=== PATIENT | male | born 1960 | race Two or more races ===

== ENCOUNTER 2016-09-14 12:31 | Inpatient (IN) | payer MEDICAID ==
[~2016-09-14] VITALS: Ht 172.7 cm; Wt 67.1 kg
[2016-09-14] VITALS (10 sets, daily range): BP systolic 124–154; BP diastolic 9–96
[~2016-09-14 12:31] MED LIST: AMLODIPINE BES2.5 MG ORAL; ASPIR 8181 MG ORAL
[2016-09-14] MEDS ORDERED: Famotidine 20 MG/ 2ML VIAL IVP ONE (12:45)
[2016-09-14] MEDS ORDERED: LORazepam Inj 2mg/ml 1ml IV ONE ×3 (12:45→17:45)
[2016-09-14] MEDS ORDERED: Thiamine HCl 100 MG in D5W 55 ML IVPB SCH (12:45)
--- NOTE | 2016-09-14 12:55 | Emergency Room Report ---
History of Present Illness General Chief Complaint: General Complaint Source: Patient, EMS Present Illness HPI The patient was transported by EMS for allegedly having shakes. The history he relates to me is more complicated. He states that he passed out today. He feels that the vapors from a bath he was getting his son caused him to pass out. He stopped drinking alcohol 6 days ago. Before that he drank daily since age 12 without stop. Days ago he started having left shoulder pain. He is uncertain whether he passed out at that time also. Any movement of the left shoulder causes severe pain. He did not have chest pain or palpitations but felt weak before passing out. No prior seizures. He does have the shakes and feels anxious. Denies any vomiting, hematemesis, melena, hematochezia. He denies any headache at this time. He feels very weak and nauseated. 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 Reviewed Nursing Documentation: PMH: Agreed, PSxH: Agreed Nursing Documentation-PMH Past Medical History: No History, Except For Hx Hypertension: Yes Review of Systems All Other Systems: negative except mentioned in HPI Physical Exam Vital Signs Date Time Temp Pulse Resp B/P Pulse Ox O2 Delivery O2 Flow Rate FiO2 09/14/16 12:27 97.2 100 18 104/76 98 Room Air Sp02 EP Interpretation: reviewed, normal General Appearance: well appearing, no apparent distress, GCS 15 Head: normocephalic Eyes: bilateral eye EOMI, bilateral eye PERRL, bilateral eye normal inspection ENT: moist mucus membranes - no lingual maceratoins Neck: supple Respiratory: chest non-tender, lungs clear, normal breath sounds Cardiovascular #1: tachycardia Cardiovascular #2: 2+ radial (R) Gastrointestinal: normal inspection, normal bowel sounds, non tender, no mass, non-distended Musculoskeletal: back normal, gait/station normal, decreased range of motion - L shoulder with pain with PROM and palpation Neurologic: alert, oriented x3, motor strength/tone normal, DTRs symmetric, sensory intact, normal gait, other - resting tremor Psychiatric: depressed affect, anxious Reflexes: 2+ knee (R), 2+ knee (L) Skin: normal inspection, no rash, warm/dry Medical Decision Making Diagnostic Impression: Primary Impression: Syncope Qualified Codes: R55 - Syncope and collapse Additional Impressions: Possible withdrawal seizure Alcohol withdrawal Qualified Codes: F10.239 - Alcohol dependence with withdrawal, unspecified Left shoulder pain Qualified Codes: M25.512 - Pain in left shoulder Hypokalemia Calcific tendinitis ER Course Patient presents with shakes and loss of consciousness with left shoulder pain. Differential includes withdrawal seizure, withdrawal, syncope, arrhythmia, acute myocardial infarction, electrolyte imbalance, shoulder contusion shoulder fracture. Emergent evaluation with laboratory, EKG, chest x-ray, shoulder film and CT head will be undertaken. The patient will receive IV hydration, Zofran, thiamine and Ativan. Shoulder with calcific tendonitis by x-ray. No fracture. CXR negative. EKG and labs sig for low potassium and elevated CPK (uric acid normal). Given potassium. Improved after first 2 mg ativan. However, later patient still with tremor and ativan repeated. Risk for DTs. Also still significant pain L shoulder. Admit Dr. John maldonado. Laboratory Tests Test 09/14/16 12:25 White Blood Count 4.4 K/UL (4.8-10.8) L Red Blood Count 4.68 M/UL (4.70-6.10) L Hemoglobin 15.1 G/DL (14.2-18.0) Hematocrit 45.1 % (42.0-52.0) Mean Corpuscular Volume 96 FL (80-99) Mean Corpuscular Hemoglobin 32.2 PG (27.0-31.0) H Mean Corpuscular Hemoglobin Concent 33.5 G/DL (32.0-36.0) Red Cell Distribution Width 14.8 % (11.6-14.8) Platelet Count 180 K/UL (150-450) Mean Platelet Volume 7.5 FL (6.5-10.1) Neutrophils (%) (Auto) 66.1 % (45.0-75.0) Lymphocytes (%) (Auto) 15.7 % (20.0-45.0) L Monocytes (%) (Auto) 15.5 % (1.0-10.0) H Eosinophils (%) (Auto) 1.2 % (0.0-3.0) Basophils (%) (Auto) 1.6 % (0.0-2.0) Sodium Level 138 mEQ/L (135-145) Potassium Level 3.1 mEQ/L (3.4-4.9) L Chloride Level 96 mEQ/L (98-107) L Carbon Dioxide Level 23 mEQ/L (20-30) Anion Gap 19 (5-15) H Blood Urea Nitrogen 11 mg/dL (7-23) Creatinine 0.8 mg/dL (0.7-1.2) Estimate Glomerular Filtration Rate > 60 mL/min (>60) Glucose Level 180 mg/dL (74-106) H Uric Acid 3.0 mg/dL (3.0-7.5) Calcium Level 9.6 mg/dL (8.6-10.2) Total Bilirubin 1.1 mg/dL (0.0-1.2) Direct Bilirubin 0.3 mg/dL (0.1-0.3) Aspartate Amino Transferase (AST) 226 U/L (5-40) H Alanine Aminotransferase (ALT) 247 U/L (3-41) H Alkaline Phosphatase 89 U/L (40-129) Total Creatine Kinase 129 U/L (38-174) Troponin I < 0.30 ng/mL (<=0.30) Total Protein 7.3 g/dL (6.6-8.7) Albumin 4.5 g/dL (3.5-5.2) Globulin 2.8 g/dL Albumin/Globulin Ratio 1.6 (1.0-2.7) Salicylates Level < 1 mg/dL (10-30) L Acetaminophen Level < 10 ug/mL (10-30) L Serum Alcohol < 10 mg/dL EKG Diagnostic Results Rate: normal Rhythm: NSR ST Segments: no acute changes Rhythm Strip Diag. Results EP Interpretation: yes Rhythm: NSR, no PVC's, no ectopy Chest X-Ray Diagnostic Results EP Interpretation: Yes Findings: no consolidation, no effusion, no pneumothorax, no acute cardiopulmonary disease Number of Views: 1 Other X-Ray Diagnostic Results Other X-Ray Diagnostic Results : EP Interpretation: Yes Findings: no fractures, no dislocation, no soft tissue swelling, other - calcific tendonitis Number of Views: 3 CT/MRI/US Diagnostic Results CT/MRI/US Diagnostic Results : Imaging Test Ordered: head Impression atrophy Last Vital Signs Date Time Temp Pulse Resp B/P Pulse Ox O2 Delivery O2 Flow Rate FiO2 09/14/16 21:00 76 16 148/94 99 Nasal Cannula 2.0 09/14/16 16:30 98.1 Status: improved Disposition: ADMITTED INPATIENT Condition: Serious Nate Duval M.D. Sep 14, 2016 12:55
[2016-09-14] MEDS ORDERED: Thiamine HCl 100mg/ml Inj ONE (12:57)
[2016-09-14 13:19] LABS: BASOPHILS % (AUTO) 1.6 % (0.0-2.0); EOSINOPHILS % (AUTO) 1.2 % (0.0-3.0); LYMPHOCYTES % (AUTO) 15.7 % (20.0-45.0); MEAN CORPUSCULAR HEMOGLOBIN 32.2 PG (27.0-31.0); MEAN CORPUSCULAR HGB CONC 33.5 G/DL (32.0-36.0); MEAN CORPUSCULAR VOLUME 96 FL (80-99); MEAN PLATELET VOLUME 7.5 FL (6.5-10.1); MONOCYTES % (AUTO) 15.5 % (1.0-10.0); NEUTROPHILS % (AUTO) 66.1 % (45.0-75.0); PLATELET COUNT 180 K/UL (150-450); RED BLOOD COUNT 4.68 M/UL (4.70-6.10); RED CELL DISTRIBUTION WIDTH 14.8 % (11.6-14.8); WHITE BLOOD COUNT 4.4 K/UL (4.8-10.8)
[2016-09-14 13:20] LABS: TROPONIN I < 0.30 ng/mL (<=0.30)
[2016-09-14 13:22] LABS: ACETAMINOPHEN < 10 ug/mL (10-30); ALANINE AMINOTRANSFERASE 247 U/L (3-41); ALBUMIN/GLOBULIN RATIO 1.6 (1.0-2.7); ALCOHOL < 10 mg/dL; ANION GAP 19 (5-15); ASPARTATE AMINO TRANSFERASE 226 U/L (5-40); CALCIUM 9.6 mg/dL (8.6-10.2); CARBON DIOXIDE 23 mEQ/L (20-30); CHLORIDE 96 mEQ/L (98-107); CREATININE 0.8 mg/dL (0.7-1.2); GLOMERULAR FILTRATION RATE > 60 mL/min (>60); HEMOLYSIS 4; POTASSIUM 3.1 mEQ/L (3.4-4.9); SODIUM 138 mEQ/L (135-145); TOTAL PROTEIN 7.3 g/dL (6.6-8.7)
[2016-09-14] MEDS ORDERED: KCl 10% 40mEq/30ml liquid ORAL STA (13:36)
[2016-09-14 13:38] LABS: BILIRUBIN,DIRECT 0.3 mg/dL (0.1-0.3)
[2016-09-14] MEDS ORDERED: Ketorolac 30mg Inj IV ONE (14:00)
[2016-09-14] MEDS ORDERED: Diazepam 10mg/2ml Inj IV ONE (16:30)
[2016-09-14 16:38] LABS: APPEARANCE,URINE CLEAR; KETONES,URINE NEGATIVE (NEGATIVE); LEUKOCYTE ESTERASE ,URINE NEGATIVE (NEGATIVE); NITRITE,URINE NEGATIVE (NEGATIVE); PH,URINE 7 (4.5-8.0); PROTEIN,URINE NEGATIVE (NEGATIVE); UROBILINOGEN,URINE NORMAL MG/DL (0.0-1.0)
[2016-09-14] MEDS: LORazepam 1mg tab ORAL SCH (23:15)
[2016-09-14] MEDS ORDERED: LORazepam Inj 2mg/ml 1ml IV PRN (23:15)
[2016-09-14] MEDS ORDERED: Milk of Magnesia 30ml Ud ORAL PRN (23:15)
--- NOTE | 2016-09-15 02:48 | History and Physical Report ---
DATE OF ADMISSION: 09/14/2016 CHIEF COMPLAINT AND REASON FOR HOSPITALIZATION: The patient is a 56-year-old man with syncope, admitted with syncope and near syncope, possible alcohol withdrawal. HISTORY OF PRESENT ILLNESS: The patient is a heavy alcohol drinker. He was apparently found to have syncope or near syncope, and a history of alcohol withdrawal. PAST SURGICAL HISTORY: Bilateral hip surgeries. MEDICATIONS: 1. Metoprolol. 2. Aspirin. ALLERGIES: None known. HABITS: He is a nonsmoker. He is a heavy alcohol drinker of beer. SYSTEM REVIEW: HEENT: Vision and hearing is good. ENDOCRINE: No known diabetes or thyroid disease. PULMONARY: No asthma, TB, or chronic cough. CARDIAC: Denies angina, [place], or palpitations. GI: No nausea or vomiting. GENITOURINARY: No dysuria. NEUROLOGIC: History of a tremor. PHYSICAL EXAMINATION: GENERAL: The patient is alert and responsive. VITAL SIGNS: His vital signs recorded in the computer. HEAD, EYES EARS, NOSE, AND THROAT: Sclerae nonicteric. Ocular motions intact in all directions. Oral mucosa moist. NECK: No adenopathy. LUNGS: Clear. HEART: Rhythm is regular. No murmur. ABDOMEN: Soft. No organomegaly or masses. EXTREMITIES: No edema, cyanosis, or clubbing. NEUROLOGIC: He is alert and oriented. Ocular motion intact in all directions. Smile is symmetric. He moves all extremities. He has some moderate tremor. IMPRESSION: 1. Syncope or near syncope. 2. Tremor, likely alcohol withdrawal. 3. Alcoholism. 4. Hypokalemia. 5. History of hypotension. PLAN: The patient will be placed on a protocol for alcohol withdrawal. Monitor for any cardiac arrhythmias, any neurologic or cardiac problems, replace potassium, follow up on clinical exam. Reyes Lopez M.D. DR: YAIMA JOB#: [id number] CC:
[2016-09-15 04:00] VITALS: BP 131/89
[2016-09-15 04:32] LABS: BASOPHILS % (AUTO) 2.7 % (0.0-2.0); EOSINOPHILS % (AUTO) 3.7 % (0.0-3.0); LYMPHOCYTES % (AUTO) 26.6 % (20.0-45.0); MEAN CORPUSCULAR HEMOGLOBIN 32.6 PG (27.0-31.0); MEAN CORPUSCULAR HGB CONC 33.7 G/DL (32.0-36.0); MEAN CORPUSCULAR VOLUME 97 FL (80-99); MEAN PLATELET VOLUME 7.2 FL (6.5-10.1); MONOCYTES % (AUTO) 18.7 % (1.0-10.0); NEUTROPHILS % (AUTO) 48.3 % (45.0-75.0); PLATELET COUNT 183 K/UL (150-450); RED BLOOD COUNT 4.43 M/UL (4.70-6.10); RED CELL DISTRIBUTION WIDTH 14.9 % (11.6-14.8); WHITE BLOOD COUNT 3.7 K/UL (4.8-10.8)
[2016-09-15 05:01] LABS: ALANINE AMINOTRANSFERASE 244 U/L (3-41); ALBUMIN/GLOBULIN RATIO 1.5 (1.0-2.7); ANION GAP 16 (5-15); ASPARTATE AMINO TRANSFERASE 217 U/L (5-40); CALCIUM 9.2 mg/dL (8.6-10.2); CARBON DIOXIDE 26 mEQ/L (20-30); CHLORIDE 97 mEQ/L (98-107); CREATININE 0.8 mg/dL (0.7-1.2); GLOMERULAR FILTRATION RATE > 60 mL/min (>60); HEMOLYSIS 6; POTASSIUM 3.2 mEQ/L (3.4-4.9); SODIUM 139 mEQ/L (135-145); TOTAL PROTEIN 6.7 g/dL (6.6-8.7)
[2016-09-15 05:24] LABS: BILIRUBIN,DIRECT 0.3 mg/dL (0.1-0.3)
[2016-09-15] MEDS: LORazepam 1mg tab ORAL SCH ×3 (05:46→17:38)
[2016-09-15 08:00] VITALS: BP 133/87
[2016-09-15] MEDS ORDERED: Thiamine HCl 100 MG, Folic Acid 1 MG, Magnesium Sulfate 2,000 MG, Multivitamin - 12 Inj... IV SCH ×5 (08:00)
[2016-09-15] MEDS: Aspirin Baby 81mg ORAL SCH (08:40)
[2016-09-15] MEDS: Heparin 5000 units/ml inj SUBQ SCH ×2 (08:42→20:19)
[2016-09-15] MEDS: Thiamine HCl 100 MG in D5W 110 ML IVPB SCH (09:38)
[2016-09-15] MEDS: Folic Acid 1 MG, Magnesium Sulfate 2,000 MG, Multivitamin - 12 Injection 10 ML in NS w/... IV SCH (09:38)
--- NOTE | 2016-09-15 10:27 | Diagnostic Imaging Report ---
Indications: SYNCOPE Technique: Continuous helical CT imaging of the brain was performed with nonionic exposure control on a Siemens sensation [address] scanner. Axial and coronal images were reconstructed at 5 mm slice thickness and interval. CTDI volume(s): 70 mGy Total DLP: 1372 mGy-cm Findings: Comparison: None Mild low attenuation is present in the bilateral periventricular white matter. Ventricles, cisterns, and sulci are only, diffusely prominent. No evidence of mass or hemorrhage, mass effect, midline shift, hydrocephalus, or increased intracranial pressure. Bone window images are unremarkable. Visualized paranasal sinuses and mastoid air cells are clear. IMPRESSION: No evidence of acute intracranial pathology Bilateral cerebral periventricular white matter low attenuation, nonspecific, likely chronic microvascular ischemic in nature. Mild atrophy. Written preliminary report placed in PACS to 06/01/[address] scanner at [facility] is accredited by the [employer] and the scans are performed using protocols designed to limit radiation exposure to as low as reasonably achievable to attain images of sufficient resolution adequate for diagnostic evaluation.
--- NOTE | 2016-09-15 10:28 | Diagnostic Imaging Report ---
Indication: Chest,, pain Technique: Single portable AP view of the chest. Findings: Comparison: None. The bones and extra pulmonary soft tissues, cardiomediastinal silhouette, pulmonary vasculature and parenchyma, and pleural surfaces are unremarkable. IMPRESSION: Negative portable AP chest--no evidence of acute injury.
--- NOTE | 2016-09-15 10:32 | Diagnostic Imaging Report ---
Indications: Left shoulder trauma, pain Technique: 3 views left shoulder. Findings: Comparison: None No fracture, dislocation, joint space widening , surrounding soft tissue swelling/foreign body/other abnormality, or other acute changes are identified. Small globular calcification resides adjacent to the greater tuberosity of the humeral head. IMPRESSION: No evidence of acute injury. Supraspinatus calcific tendinopathy
[2016-09-15 12:00] VITALS: BP 119/74
--- NOTE | 2016-09-15 15:15 | General Progress Note ---
Assessment/Plan Problem List: (1) Syncope ICD Codes: R55 - Syncope and collapse SNOMED: 344447639 Qualifiers: Qualified Codes: R55 - Syncope and collapse (2) Calcific tendinitis ICD Codes: M65.20 - Calcific tendinitis, unspecified site SNOMED: 59510600 (3) Left shoulder pain ICD Codes: M25.512 - Pain in left shoulder SNOMED: 41796397, 98649525 Qualifiers: Qualified Codes: M25.512 - Pain in left shoulder (4) Hypokalemia ICD Codes: E87.6 - Hypokalemia SNOMED: 96413217, 69818061 (5) Alcohol withdrawal ICD Codes: F10.239 - Alcohol dependence with withdrawal, unspecified SNOMED: 533755269, 03393081 Qualifiers: Qualified Codes: F10.239 - Alcohol dependence with withdrawal, unspecified Assessment/Plan at risk for DT, continue benzodiazepines, thiamine, kcl, Subjective Constitutional: Reports: weakness HEENT: Reports: no symptoms Cardiovascular: Reports: no symptoms Respiratory: Reports: no symptoms Gastrointestinal/Abdominal: Reports: no symptoms Genitourinary: Reports: no symptoms Neurologic/Psychiatric: Reports: tremors Endocrine: Reports: no symptoms Hematologic/Lymphatic: Reports: no symptoms Allergies: Coded Allergies: No Known Allergies (Unverified , 09/14/16) Subjective L shoulder pain Objective Last 24 Hour Vital Signs Date Time Temp Pulse Resp B/P Pulse Ox O2 Delivery O2 Flow Rate FiO2 09/15/16 12:00 98.8 92 21 119/74 97 Room Air 09/15/16 12:00 72 09/15/16 08:00 97.9 87 21 133/87 97 Room Air 09/15/16 04:00 97.9 70 24 131/89 99 Room Air 09/15/16 03:47 88 09/15/16 00:03 69 09/14/16 23:35 98.1 76 16 148/94 99 Room Air 2.0 09/14/16 23:00 76 16 148/94 99 Room Air 09/14/16 22:00 81 14 154/91 100 Room Air 09/14/16 21:00 76 16 148/94 99 Nasal Cannula 2.0 09/14/16 20:00 70 15 138/86 100 Nasal Cannula 2.0 09/14/16 19:00 66 11 133/86 100 Nasal Cannula 2.0 09/14/16 18:00 103 30 151/89 99 Nasal Cannula 2.0 09/14/16 17:30 84 19 124/96 96 Room Air 09/14/16 16:30 98.1 88 20 127/79 100 Room Air 09/14/16 15:47 97.2 09/14/16 15:30 74 16 133/89 99 Room Air Intake and Output 09/14/16 09/15/16 19:00 07:00 Intake Total 1276 ml 100 ml Output Total 800 ml 500 ml Balance 476 ml -400 ml Intake Oral 220 ml 100 ml IV Total 1056 ml Output Urine Total 800 ml 500 ml Laboratory Tests 09/14/16 15:30: Urine Color Yellow, Urine Appearance Clear, Urine pH 7, Urine Specific [place] 1.005, Urine Protein Negative, Urine Glucose (UA) 2+H, Urine Ketones Negative, Urine Occult Blood Negative, Urine Nitrite Negative, Urine Bilirubin Negative, Urine Urobilinogen Normal, Urine Leukocyte Esterase Negative, Urine Opiates Screen Negative, Urine Barbiturates Screen Negative, Phencyclidine (PCP) Screen Negative, Urine Amphetamines Screen Negative, Urine Benzodiazepines Screen Negative, Urine Cocaine Screen Negative, Urine Marijuana (THC) Screen Negative 09/15/16 03:30: White Blood Count 3.7L, Red Blood Count 4.43L, Hemoglobin 14.4, Hematocrit 42.9 , Mean Corpuscular Volume 97, Mean Corpuscular Hemoglobin 32.6H, Mean Corpuscular Hemoglobin Concent 33.7, Red Cell Distribution Width 14.9H, Platelet Count 183, Mean Platelet Volume 7.2, Neutrophils (%) (Auto) 48.3, Lymphocytes (%) (Auto) 26.6, Monocytes (%) (Auto) 18.7H, Eosinophils (%) (Auto) 3.7H, Basophils (%) (Auto) 2.7H, Sodium Level 139, Potassium Level 3.2L, Chloride Level 97L, Carbon Dioxide Level 26, Anion Gap 16H, Blood Urea Nitrogen 9, Creatinine 0.8, Estimat Glomerular Filtration Rate > 60, Glucose Level 89, Calcium Level 9.2, Total Bilirubin 1.2, Direct Bilirubin 0.3, Aspartate Amino Transf (AST/SGOT) 217H, Alanine Aminotransferase (ALT/SGPT) 244H, Alkaline Phosphatase 85, Total Creatine Kinase 108, Total Protein 6.7, Albumin 4.1, Globulin 2.6, Albumin/Globulin Ratio 1.5, Thyroid Stimulating Hormone (TSH) 2.120 Height (Feet): 5 Height (Inches): 8.00 Weight (Pounds): 148 General Appearance: WD/WN, alert EENT: PERRL/EOMI Neck: normal alignment Cardiovascular: normal rate Respiratory/Chest: lungs clear Abdomen: non tender, soft, no organomegaly Extremities: other - pain with rom L shoulder Neurologic: skid adzer II-XII grossly normal, other - od tremor BEATA STATON Sep 15, 2016 15:15
[2016-09-15 16:00] VITALS: BP 137/80
[2016-09-15 20:00] VITALS: BP 131/83
[2016-09-16] VITALS: BP 127/75
[2016-09-16] MEDS: LORazepam 1mg tab ORAL SCH ×4 (00:57→17:02)
[2016-09-16 04:00] VITALS: BP 135/84
[2016-09-16 04:50] LABS: MEAN CORPUSCULAR HEMOGLOBIN 32.9 PG (27.0-31.0); MEAN CORPUSCULAR HGB CONC 33.8 G/DL (32.0-36.0); MEAN CORPUSCULAR VOLUME 97 FL (80-99); MEAN PLATELET VOLUME 6.4 FL (6.5-10.1); PLATELET COUNT 207 K/UL (150-450); RED BLOOD COUNT 4.39 M/UL (4.70-6.10); WHITE BLOOD COUNT 4.3 K/UL (4.8-10.8)
[2016-09-16 05:46] LABS: ANION GAP 13 (5-15); CARBON DIOXIDE 25 mEQ/L (20-30); CHLORIDE 100 mEQ/L (98-107); CREATININE 0.6 mg/dL (0.7-1.2); GLOMERULAR FILTRATION RATE > 60 mL/min (>60); HEMOLYSIS 1; POTASSIUM 3.6 mEQ/L (3.4-4.9); SODIUM 138 mEQ/L (135-145)
[2016-09-16 08:00] VITALS: BP 142/88
[2016-09-16] MEDS: Aspirin Baby 81mg ORAL SCH (09:17)
[2016-09-16] MEDS: Heparin 5000 units/ml inj SUBQ SCH (09:18)
[2016-09-16] MEDS: Thiamine HCl 100 MG in D5W 110 ML IVPB SCH (09:23)
[2016-09-16] MEDS: Folic Acid 1 MG, Magnesium Sulfate 2,000 MG, Multivitamin - 12 Injection 10 ML in NS w/... IV SCH (09:23)
[2016-09-16 12:00] VITALS: BP 128/79
[2016-09-16 16:00] VITALS: BP 140/86
--- NOTE | 2016-09-16 18:56 | Cardiology Report ---
APPROVED REPORT EKG Measurement Heart [id number] Normal sinus rhythm Normal ECG
[2016-09-16] MEDS ORDERED: ATIVAN1 MG ORAL (19:18)
[2016-09-16 20:00] VITALS: BP 138/84
--- NOTE | 2016-09-17 03:38 | Discharge Summary ---
DATE OF ADMISSION: 09/14/2016 DATE OF DISCHARGE: 09/16/2016 PERTINENT HISTORY: The patient is a 56-year-old man, admitted for possible syncope or near syncope and likely alcohol withdrawal. He has not had any alcohol for about five days, but was a heavy drinker. He had even a syncope or near syncope and he was brought by the paramedics. PERTINENT PHYSICAL FINDINGS: GENERAL: The patient is alert. HEENT: Head, eyes, ears, nose, and throat are unremarkable. LUNGS: Clear. HEART: Regular rhythm. ABDOMEN: Soft without organomegaly. EXTREMITIES: No edema. He has pain with range of motion of the left arm. NEUROLOGIC: He is alert and oriented. Cranial nerves are intact. He has a moderate tremor. COURSE IN THE HOSPITAL: The patient had syncope or near syncope and left arm contusion without any evidence of fracture on imaging. He was monitored on a telemetry unit and there was no arrhythmias. He was given medications and observation for alcohol withdrawal. On the day of discharge, his vital signs were stable. Lungs were clear. Heart, regular rhythm. His tremor was minimal. He felt better and he was discharged home in stable condition. FINAL DIAGNOSES: 1. Syncope. 2. Alcohol withdrawal syndrome. 3. Alcoholic hepatitis. 4. Alcoholism. 5. Hypokalemia. DISCHARGE DISPOSITION: He is discharged home on a regular diet. Lorazepam 1 mg t.i.d. for two days, 1 mg b.i.d. for two days, and then 1 mg daily p.r.n. He is encouraged to follow up in the office of his primary care physician. Reyes Lopez M.D. DR: AGUSTINA JOB#: [id number] CC:
== END 2016-09-16 20:05 | disposition home or self-care (01) | DRG 775 ==
LOC: EDBD 12:31 → EMR 13:27 → 2W 14:14 → EDBEDREQ 21:29
DX: F10.239 Alcohol dependence with withdrawal, unspecified (principal); R55 Syncope and collapse; K70.10 Alcoholic hepatitis without ascites; E87.6 Hypokalemia; M65.20 Calcific tendinitis, unspecified site; M25.512 Pain in left shoulder; I10 Essential (primary) hypertension
CPT/HCPCS: 36415; 70450; 71010; 80048; 80053; 80300; 80329; 81003; 82248; 82550; 82962; 84443; 84484; 84550; 85025; 93005; J2405; J8499

== ENCOUNTER 2020-09-02 17:15 | Emergency (ER) | payer MEDICAID ==
[~2020-09-02] VITALS: Ht 172.7 cm; Wt 81.6 kg
[~2020-09-02 17:15] MED LIST changes: +ATIVAN1 MG ORAL
--- NOTE | 2020-09-02 17:29 | NUR ---
ED Nurse Note: pt was sleeping on his driveway, he drank too much alcohol and neighbors called 911
[2020-09-02 17:30] VITALS: BP 152/94
--- NOTE | 2020-09-02 18:53 | NUR ---
ED Nurse Note: pt resting with eyes closed in no noted distress
[2020-09-02 19:14] VITALS: BP 135/87
--- NOTE | 2020-09-02 19:15 | NUR ---
ER DISCHARGE NOTE: Patient is cleared to be discharged per ERMD, pt is aox4, on room air, with stable vital signs. pt was given dc instructions, pt was able to verbalize understanding, pt id band removed without complications. pt is able to ambulate with steady gait. pt took all belongings.
--- NOTE | 2020-09-02 20:00 | Emergency Room Report ---
History of Present Illness General Chief Complaint: Alcohol Intoxication Source: Patient Present Illness HPI 60-year-old male presents for evaluation. Brought in by EMS. Found on sidewalk. Admitted to drinking. Bystanders called 911. States he feels okay. Admits to drinking some beer. Denies any drug use. Denies any pain. Denies any nausea or vomiting. No other aggravating relieving factors. Denies any other associated symptoms Allergies: Coded Allergies: No Known Allergies (Unverified , 09/14/16) COVID-19 Screening Contact w/high risk pt: No Experienced COVID-19 symptoms?: No COVID-19 Testing performed WRITING TUTOR: No Patient History Past Medical History: none Past Surgical History: none Pertinent Family History: none Social History: Reports: alcohol use; Denies: smoking, drug use Immunizations: UTD Reviewed Nursing Documentation: PMH: Agreed; PSxH: Agreed Nursing Documentation-PMH Past Medical History: No History, Except For Hx Cardiac Problems: Yes Hx Hypertension: Yes Hx Cancer: No Hx Gastrointestinal Problems: No Hx Neurological Problems: Yes Hx Syncope: Yes Review of Systems All Other Systems: negative except mentioned in HPI Physical Exam Vital Signs Date Time Temp Pulse Resp B/P (MAP) Pulse Ox O2 Delivery O2 Flow Rate FiO2 09/02/20 17:10 97.5 76 16 152/94 (113) 98 Sp02 EP Interpretation: reviewed, normal General Appearance: no apparent distress, alert, GCS 15, non-toxic Head: normocephalic, atraumatic Eyes: bilateral eye normal inspection, bilateral eye PERRL ENT: hearing grossly normal, normal pharynx, no angioedema, normal voice Neck: full range of motion, supple/symm/no masses Respiratory: chest non-tender, lungs clear, normal breath sounds, speaking full sentences Cardiovascular #1: regular rate, rhythm, no edema Cardiovascular #2: 2+ carotid (R), 2+ carotid (L), 2+ radial (R), 2+ radial (L), 2+ dorsalis pedis (R), 2+ dorsalis pedis (L) Gastrointestinal: normal bowel sounds, non tender, soft, non-distended, no guarding, no rebound Rectal: deferred Genitourinary: normal inspection, no CVA tenderness Musculoskeletal: back normal, normal range of motion, gait/station normal, non- tender Neurologic: alert, motor strength/tone normal, oriented x3, sensory intact, responsive, speech normal Psychiatric: judgement/insight normal, memory normal, mood/affect normal, no suicidal/homicidal ideation Reflexes: 3+ bicep (R), 3+ bicep (L), 3+ tricep (R), 3+ tricep (L), 3+ knee (R), 3+ knee (L) Lymphatic: no adenopathy Medical Decision Making Diagnostic Impression: Primary Impression: Acute alcoholic intoxication Qualified Codes: F10.920 - Alcohol use, unspecified with intoxication, uncomplicated ER Course Hospital Course 60-year-old female presents to ED status post EtOH intoxication. Clinical course Patient placed on stretcher. Given that patient is able to provide an adequate history, I see no need to check blood work or place an IV. Patient allowed to sleep. My assessment shows no evidence of SI/HI requiring psychiatric evaluation. Patient allowed to rest in now awake alert oriented x3. ambulating without difficulty. Safe for discharge with close outpatient follow-up Diagnosis - ETOH intoxication stable and discharged to home. Followup with PMD. Return to ED if symptoms recur or worsen Last Vital Signs Date Time Temp Pulse Resp B/P (MAP) Pulse Ox O2 Delivery O2 Flow Rate FiO2 09/02/20 19:14 98.2 86 16 135/87 98 Status: improved Disposition: HOME, SELF-CARE Condition: Stable Referrals: [facility] Patient Instructions: Alcohol Intoxication, [id number] Elliott Bello MD Sep 02, 2020 20:00
== END 2020-09-02 19:15 | disposition home or self-care (01) ==
LOC: EDBD 17:15 → EMR 17:30
DX: F10.920 Alcohol use, unspecified with intoxication, uncomplicated (principal); I10 Essential (primary) hypertension
CPT/HCPCS: 99282